=== PATIENT | female | born 1950 | race Caucasian/White ===

== ENCOUNTER → 2020-08-12 | Outpatient (CLI) | payer MEDICARE, OTHER ==
[~2020-08-12] MED LIST: AMBIEN10 MG PO; ASPIRIN CHEWABL81 MG PO; COL-RITE250 MG PO; ELIQUIS 2.5 MG2.5 MG PO; MAGNESIUM250 MG PO; MIRAPEX0.25 MG PO; MOBIC15 MG PO; OMEPRAZOLE20 MG PO; PERCOCET 5/325 T1 EA PO; PROVENTIL HFA6.7 GM INH; REQUIP2 MG PO; RESTASIS 0.05%1 EACH OD; TART CHERRY CA1 EACH PO; TOPROL XL100 MG PO; VITAMIN D32000 UNI1 PO; XANAX 0.25 MG0.25 MG PO; ZYRTEC10 M3 PO; [UNRECOGNIZED DRUG - OTHER] PO
== END | disposition home or self-care (01) ==
LOC: RAD 07-18 10:00 → CT 07-18 11:00 → RAD 09:00 → EDSTATUS 09:00 → RAD 09:08
DX: S83.282D Other tear of lateral meniscus, current injury, left knee, subsequent encounter (principal); M17.12 Unilateral primary osteoarthritis, left knee; M22.42 Chondromalacia patellae, left knee; X58.XXXD Exposure to other specified factors, subsequent encounter
CPT/HCPCS: 73580; 73701; Q9962

== ENCOUNTER → 2020-12-04 | Outpatient (CLI) | payer MEDICARE, OTHER | LOC: KOH-I 09:51 | DX: Z47.1 Aftercare following joint replacement surgery (principal); Z96.652 Presence of left artificial knee joint | CPT/HCPCS: 73562 ==

== ENCOUNTER → 2021-03-05 | Outpatient (CLI) | payer MEDICARE, OTHER | END | disposition home or self-care (01) | LOC: OPSV 11:40 | DX: Z53.9 Procedure and treatment not carried out, unspecified reason (principal) | CPT/HCPCS: G0463 ==

== ENCOUNTER → 2021-03-17 | Outpatient (CLI) | payer MEDICARE, OTHER | LOC: KOH-I 15:50 | DX: Z96.652 Presence of left artificial knee joint (principal) | CPT/HCPCS: 73564 ==

== ENCOUNTER → 2021-04-02 | Outpatient (CLI) | payer MEDICARE, OTHER | LOC: OPSV 13:13 | DX: T84.54XA Infection and inflammatory reaction due to internal left knee prosthesis, initial encounter (principal); B95.4 Other streptococcus as the cause of diseases classified elsewhere; Z79.2 Long term (current) use of antibiotics; I10 Essential (primary) hypertension; M19.90 Unspecified osteoarthritis, unspecified site; J45.909 Unspecified asthma, uncomplicated; Z88.1 Allergy status to other antibiotic agents; Z88.8 Allergy status to other drugs, medicaments and biological substances | CPT/HCPCS: G0463 ==

== ENCOUNTER → 2021-04-16 | Outpatient (CLI) | payer MEDICARE, OTHER | LOC: OPSV 10:41 | DX: M25.562 Pain in left knee (principal); T81.49XD Infection following a procedure, other surgical site, subsequent encounter | CPT/HCPCS: G0463 ==

== ENCOUNTER → 2021-06-09 | Outpatient (CLI) | payer MEDICARE, OTHER ==
[2021-06-09 15:17] LABS: HEMOGLOBIN 12.7 gm/dl (12.3-15.3); RED BLOOD COUNT 4.58 M/UL (4.00-5.10); WHITE BLOOD COUNT 9.6 K/UL (4.5-11.0)
[2021-06-10 07:12] LABS: CREATININE, SERUM 1.01 mg/dL (0.57-1.00); POTASSIUM, SERUM 4.5 mmol/L (3.5-5.2)
== END ==
LOC: LAB 14:20
PROVIDERS: Orthopaedic Surgery
DX: T84.54XD Infection and inflammatory reaction due to internal left knee prosthesis, subsequent encounter (principal)
CPT/HCPCS: 36415; 80048; 85027; 85652; 86140